=== PATIENT | female | born 1980 | race Caucasian/White ===

== ENCOUNTER 2017-10-10 03:44 | Emergency (ER) | payer OTHER ==
[~2017-10-10] VITALS: Ht 172.7 cm; Wt 97.5 kg
[~2017-10-10 03:44] MED LIST: CALCIUM OYSTER500 MG PO; FLEXERIL PO; LANOLIN56 GM; MACROBID; MACROBID 100 M100 M1 PO; NORCO 5-325 TA1 EACH PO; PERCOCET 5-3251 EACH PO; PERCOCET PO; PRENATAL; PRENATAL PO; PYRIDIUM100 MG; TUCKS MEDICATE1 EAC1; TUCKS1 EAC1; ZOFRAN ODT4 MG PO
[2017-10-10] MEDS ORDERED: ADIPEX-P37.5 M1 PO (04:15)
[2017-10-10] MEDS ORDERED: TORADOL 10 MG T10 MG PO (05:35)
[2017-10-10 05:50] VITALS: BP 100/44
== END 2017-10-10 05:50 | disposition home or self-care (01) ==
LOC: M.ERS 03:44
DX: R51 Headache (principal); Y04.8XXA Assault by other bodily force, initial encounter; Y93.89 Activity, other specified; Y92.89 Other specified places as the place of occurrence of the external cause; Y99.8 Other external cause status; Z90.49 Acquired absence of other specified parts of digestive tract; Z88.5 Allergy status to narcotic agent